=== PATIENT | male | born 1995 | race Caucasian/White ===

== ENCOUNTER 2017-09-01 07:07 | Emergency (ER) | payer BC ==
--- NOTE | 2017-09-01 07:09 | ER Report ---
History and Physical Time Seen By MD: 07:09 HPI/ROS CHIEF COMPLAINT: Right volar aspect of middle digit fishhook foreign body HISTORY OF PRESENT ILLNESS: Patient is a 22-year-old male here with a fishing hook foreign body of the right 3rd volar distal digit. He reportedly was grabbing items out of the bed of his truck when the fishhook became embedded. Patient reports his last tetanus vaccination was approximately 1999 [id number],011 to this will be updated today. Her vascular exam is intact. No other injury or complaints are present. REVIEW OF SYSTEMS: Extremities: No acute weakness or paresthesias Neuro: No focal deficits Allergies: Coded Allergies: Amoxicillin (Verified Allergy, 07/14/13) clavulanic acid (Verified Allergy, 07/14/13) Home Meds Reported Medications Loratadine (CLARITIN) 5 Mg Tab.rapdis, 5 MG PO 09/01/17 Hx Smoking: No Smoking Status: Never Smoker Hx Substance Use Disorder: No Constitutional Vital Sign - Last 24 Hours 09/01/17 07:11 Temp 98.6 Pulse 70 Resp 16 B/P (MAP) 146/93 Pulse Ox 96 O2 Delivery Room Air Physical Exam General Appearance: The patient is alert, has no immediate need for airway protection and no current signs of toxicity. NAD Extremities have full range of motion and are non tender. Skin: No rashes or lesions. Neuro: No focal deficits DIFFERENTIAL DIAGNOSIS: After history and physical exam differential diagnosis was considered for foreign body removal Medical Decision Making ED Course/Re-evaluation ED Course Patient is a 22-year-old male here with a fishing hook foreign body to the volar aspect of the 3rd digit of the right hand. Neurovascular exam is intact. Fishing hook has 3 barbs each with a single retrograde Lillian. The fishing hook had twisted and bent while in the finger. I used needle nose pliers to reposition the needle and to extract in a retrograde fashion. I had initially attempted to advance the needle however since it was bent it was not piercing through the skin. It was removed successfully intact. Patient received a tetanus booster. Decision to Disposition Date: Sep 01, 2017 Decision to Disposition Time: 07:30 Depart Departure Latest Vital Signs Vital Signs Date Time Temp Pulse Resp B/P (MAP) Pulse Ox O2 Delivery O2 Flow Rate FiO2 09/01/17 07:11 98.6 70 16 146/93 96 Room Air Impression: Primary Impression: Fish hook injury of finger Condition: Improved Disposition: HOME OR SELF-CARE Patient Instructions: Soft Tissue Foreign Body (ED) Additional Instructions: Please monitor the area for infectious signs such as redness, drainage, swelling. JENNIFER FULLER DO Sep 01, 2017 07:09
[2017-09-01 07:11] VITALS: BP 146/93
[2017-09-01] MEDS ORDERED: LORA5TAB16 PO (07:14)
[2017-09-01] MEDS ORDERED: DIPHTH/TETANUS/ACEL. PERTUSSIS IM ONLY ONE (07:20)
== END 2017-09-01 07:36 | disposition home or self-care (01) ==
LOC: ER 07:11
DX: S61.242A Puncture wound with foreign body of right middle finger without damage to nail, initial encounter (principal)
CPT/HCPCS: 90471; 90715; 99283